=== PATIENT | male | born 1975 | race Caucasian/White ===

== ENCOUNTER → 2018-09-16 | Outpatient (CLI) | payer OTHER ==
[2018-09-16 08:55] LABS: BASO # 0.1 10^3/uL (0.0-0.2); BASO % 1.2 % (0.0-1.0); EOS # 0.2 10^3/uL (0.0-0.50); EOS % 4.1 % (0.0-3.0); HEMATOCRIT 48.7 % (42.0-52.0); HEMOGLOBIN 16.1 g/dl (13.5-17.5); LYMPH % 34.1 % (24.0-44.0); MEAN CORPUSCULAR HEMOGLOBIN 30.6 pg (27.0-33.0); MEAN CORPUSCULAR HGB CONC 33.1 g/dl (32.0-36.5); MEAN CORPUSCULAR VOLUME 92.4 fl (80.0-96.0); MONO # 0.6 10^3/uL (0.0-0.8); MONO % 9.8 % (0.0-5.0); NEUTROPHILS # 2.9 10^3/uL (1.8-7.7); NEUTROPHILS % 50.5 % (36.0-66.0); PLATELET COUNT, AUTOMATED 178 10^3/uL (150-450); RED BLOOD COUNT 5.27 10^6/uL (4.30-6.10); WHITE BLOOD COUNT 5.8 10^3/uL (4.0-10.0)
[2018-09-16 09:26] LABS: ALBUMIN 4.3 GM/DL (3.2-5.2); ALT/SGPT 23 U/L (12-78); BILIRUBIN,TOTAL 1.2 MG/DL (0.2-1.0); BLOOD UREA NITROGEN 9 MG/DL (7-18); CALCIUM LEVEL 9.4 MG/DL (8.5-10.1); CARBON DIOXIDE LEVEL 31 MEQ/L (21-32); CHLORIDE LEVEL 108 MEQ/L (98-107); CHOLESTEROL LEVEL 153 MG/DL (<200); CHOLESTEROL RISK RATIO 2.833 (<5); CREATININE FOR GFR 1.23 MG/DL (0.70-1.30); GLOMERULAR FILTRATION RATE > 60.0 (>60); GLUCOSE, FASTING 89 MG/DL (70-100); HDL CHOLESTEROL 54 MG/DL (>40); LDL CHOLESTEROL 77 MG/DL (<100); NON-HDL-C 99 MG/DL; POTASSIUM SERUM 5.3 MEQ/L (3.5-5.1); SODIUM LEVEL 141 MEQ/L (136-145); TRIGLYCERIDES LEVEL 111 MG/DL (<150)
== END ==
LOC: M WUC 08:11
PROVIDERS: ATTEND Physician Assistant
DX: F17.210 Nicotine dependence, cigarettes, uncomplicated (principal)

== ENCOUNTER → 2019-07-27 | Outpatient (REF) | payer OTHER | LOC: M LAB REF 10:51 | PROVIDERS: ATTEND Physician Assistant Medical | DX: J02.9 Acute pharyngitis, unspecified (principal) ==

== ENCOUNTER → 2022-07-15 | Outpatient (CLI) | payer OTHER | LOC: M LABSMTC 11:07 | PROVIDERS: ATTEND Anesthesiology | DX: Z20.822 Contact with and (suspected) exposure to COVID-19 (principal) ==

== ENCOUNTER 2022-07-18 06:39 | Day surgery (SDC) | payer OTHER ==
[~2022-07-18] VITALS: Ht 180.3 cm; Wt 70.3 kg
[~2022-07-18 06:39] MED LIST: NS 1,000 ML IV ONE
[2022-07-18] MEDS ORDERED: LIDOCAINE 2% 100MG/5ML SDV (FOR ANES.) As Ordered ONE (07:35)
[2022-07-18] MEDS ORDERED: propofoL 500 MG/50 ML VIAL As Ordered ONE (07:35)
[2022-07-18 08:33] VITALS: BP 127/93
== END 2022-07-18 08:34 | disposition home or self-care (01) ==
LOC: M OPP 06:39
PROVIDERS: ATTEND Surgery
DX: Z12.11 Encounter for screening for malignant neoplasm of colon (principal); Z80.0 Family history of malignant neoplasm of digestive organs; C20 Malignant neoplasm of rectum; K63.89 Other specified diseases of intestine; F17.200 Nicotine dependence, unspecified, uncomplicated

== ENCOUNTER → 2022-07-25 | Outpatient (CLI) | payer OTHER ==
[~2022-07-25] MED LIST changes: +GASTROGRAFIN SOLUTION 30ML As Ordered ONE; +ISOVUE-370 76% 100ML VIAL As Ordered ONE; -NS 1,000 ML IV ONE
== END ==
LOC: M RAD 14:19
PROVIDERS: ATTEND Surgery
DX: K62.89 Other specified diseases of anus and rectum (principal)

== ENCOUNTER → 2022-08-01 | Outpatient (CLI) | payer OTHER ==
[~2022-08-01] MED LIST changes: -GASTROGRAFIN SOLUTION 30ML As Ordered ONE; -ISOVUE-370 76% 100ML VIAL As Ordered ONE; +PROHANCE 279.3MG/ML 15ML VIAL ONE
== END ==
LOC: M PLAIMG 14:04
PROVIDERS: ATTEND Specialist
DX: C20 Malignant neoplasm of rectum (principal)

== ENCOUNTER → 2022-08-07 | Outpatient (CLI) | payer OTHER ==
[~2022-08-07] MED LIST changes: +CAPE1TAB2 PO; -PROHANCE 279.3MG/ML 15ML VIAL ONE
== END ==
LOC: M LABSMTC 08:34
PROVIDERS: ATTEND Anesthesiology
DX: Z01.818 Encounter for other preprocedural examination (principal); Z11.52 Encounter for screening for COVID-19

== ENCOUNTER → 2022-08-09 | Outpatient (CLI) | payer OTHER ==
[~2022-08-09] MED LIST changes: +LIDOCAINE 1% MDV 20ML VIAL As Ordered ONE; +MIDAZOLAM INJ 2MG/2ML VIAL As Ordered ONE; +NS 1,000 ML IV SCH; +ceFAZolin 2 GM/D5W 50 ML IV BAG As Ordered ONE; +ceFAZolin SOD 2 GM in IV 1 EA IV ONE; +diphenhydrAMINE 50MG/ML VIAL As Ordered ONE; +fentaNYL 100 MCG/2 ML INJECTION As Ordered ONE
[2022-08-09 16:26] VITALS: BP 116/79
== END ==
LOC: M IRPRO 12:20
PROVIDERS: ATTEND Specialist
DX: C20 Malignant neoplasm of rectum (principal)
CPT/HCPCS: 36561; 99152; 99153; C1769; C1788; C1894; J0690; J1200; J1642; J1644; J2250; J3010

== ENCOUNTER → 2022-08-16 | Outpatient (CLI) | payer OTHER ==
[~2022-08-16] MED LIST changes: -LIDOCAINE 1% MDV 20ML VIAL As Ordered ONE; -MIDAZOLAM INJ 2MG/2ML VIAL As Ordered ONE; -NS 1,000 ML IV SCH; -ceFAZolin 2 GM/D5W 50 ML IV BAG As Ordered ONE; -ceFAZolin SOD 2 GM in IV 1 EA IV ONE; -diphenhydrAMINE 50MG/ML VIAL As Ordered ONE; -fentaNYL 100 MCG/2 ML INJECTION As Ordered ONE
== END ==
LOC: M ONCR 13:02
PROVIDERS: ATTEND General Practice
DX: C20 Malignant neoplasm of rectum (principal); F17.210 Nicotine dependence, cigarettes, uncomplicated; Z80.0 Family history of malignant neoplasm of digestive organs

== ENCOUNTER 2022-08-21 13:01 | Emergency (ER) | payer OTHER ==
[~2022-08-21] VITALS: Ht 180.3 cm; Wt 70.7 kg
[2022-08-21 13:02] VITALS: BP 112/74
[2022-08-21] MEDS ORDERED: ACETAMINOPHEN 325 MG TAB PO ONE (14:40)
[2022-08-21] MEDS ORDERED: DERMABOND TOPICAL SKIN ADHESIVE TOP ONE (15:10)
[2022-08-21] MEDS ORDERED: CEPH500C PO (15:22)
== END 2022-08-21 15:34 | disposition home or self-care (01) ==
LOC: M ED 13:01
DX: S61.412A Laceration without foreign body of left hand, initial encounter (principal); W29.8XXA Contact with other powered hand tools and household machinery, initial encounter; Y92.89 Other specified places as the place of occurrence of the external cause; Y93.H3 Activity, building and construction; Y99.0 Civilian activity done for income or pay

== ENCOUNTER → 2022-08-28 | Outpatient (POV) | payer OTHER ==
[~2022-08-28] VITALS: Ht 180.3 cm; Wt 71.3 kg
[~2022-08-28] MED LIST changes: +CEPH500C PO
[2022-08-28 13:35] VITALS: BP 132/84
== END ==
LOC: M IRPOV 13:31
PROVIDERS: ATTEND Radiology Diagnostic Radiology
DX: Z45.2 Encounter for adjustment and management of vascular access device (principal)

== ENCOUNTER → 2022-08-31 | Outpatient (RCR) | payer OTHER | LOC: M ONCR 10:08 | PROVIDERS: ATTEND General Practice | DX: C20 Malignant neoplasm of rectum (principal) ==

== ENCOUNTER → 2022-09-04 | Outpatient (CLI) | payer OTHER ==
[~2022-09-04] MED LIST changes: +ISOVUE-370 76% 100ML VIAL As Ordered ONE
== END ==
LOC: M RAD 09:18
PROVIDERS: ATTEND General Practice
DX: C20 Malignant neoplasm of rectum (principal)

== ENCOUNTER 2022-09-28 07:46 | Outpatient (RCR) | payer OTHER ==
[~2022-09-28 07:46] MED LIST changes: -ISOVUE-370 76% 100ML VIAL As Ordered ONE; +ONDA-84 PO; +PROC10TA5 PO
== END 2022-09-30 ==
LOC: M ONCR 07:46
PROVIDERS: ATTEND General Practice
DX: C20 Malignant neoplasm of rectum (principal)

== ENCOUNTER 2022-10-17 07:48 | Outpatient (RCR) | payer OTHER ==
[~2022-10-17 07:48] MED LIST changes: +CAPE1TAB PO
== END 2022-10-31 ==
LOC: M ONCR 07:48
PROVIDERS: ATTEND General Practice
DX: C20 Malignant neoplasm of rectum (principal)

== ENCOUNTER → 2023-07-23 | Outpatient (CLI) | payer OTHER | LOC: M ONCR 08:41 | PROVIDERS: ATTEND General Practice | DX: C20 Malignant neoplasm of rectum (principal); G62.0 Drug-induced polyneuropathy; T45.1X5A Adverse effect of antineoplastic and immunosuppressive drugs, initial encounter; F17.210 Nicotine dependence, cigarettes, uncomplicated; Z71.2 Person consulting for explanation of examination or test findings; Z79.899 Other long term (current) drug therapy; Z92.21 Personal history of antineoplastic chemotherapy; Z92.3 Personal history of irradiation; Z93.2 Ileostomy status ==

== ENCOUNTER → 2023-09-13 | Outpatient (CLI) | payer OTHER ==
[~2023-09-13] MED LIST changes: +GASTROGRAFIN SOLUTION 30ML As Ordered ONE; +ISOVUE-370 76% 100ML VIAL As Ordered ONE
== END ==
LOC: M RAD 13:19
PROVIDERS: ATTEND Nurse Practitioner Family
DX: C20 Malignant neoplasm of rectum (principal)
CPT/HCPCS: 71260; 74177; Q9963; Q9967

== ENCOUNTER → 2023-09-30 | Outpatient (CLI) | payer OTHER ==
[~2023-09-30] MED LIST changes: -ISOVUE-370 76% 100ML VIAL As Ordered ONE; +LIQUID POLIBAR PLUS 105% w/v 750ML BTL As Ordered ONE
== END ==
LOC: M RAD 08:59
PROVIDERS: ATTEND Nurse Practitioner Family
DX: C20 Malignant neoplasm of rectum (principal); Z93.2 Ileostomy status
CPT/HCPCS: 74270; Q9963